=== PATIENT | female | born 1960 | race Caucasian/White ===

== ENCOUNTER 2023-01-14 11:46 | Outpatient (CLI) | payer BC | END 2023-01-14 11:47 | disposition home or self-care (01) | LOC: MADLABBHPM 11:46 → MADLAB 11:47 | PROVIDERS: ATTEND Family Medicine | DX: Z01.419 Encounter for gynecological examination (general) (routine) without abnormal findings (principal); Z78.0 Asymptomatic menopausal state | CPT/HCPCS: 87624; 88175 ==

== ENCOUNTER 2023-03-20 11:04 | Outpatient (CLI) | payer BC ==
[2023-03-20 12:27] LABS: Cardiac Risk 3.8 (Less than 4.5)
== END 2023-03-20 11:05 | disposition home or self-care (01) ==
LOC: MADLABBHPM 11:04
PROVIDERS: ATTEND Family Medicine
DX: E78.00 Pure hypercholesterolemia, unspecified (principal)
CPT/HCPCS: 80061